=== PATIENT | male | born 1990 | race Caucasian/White ===

== ENCOUNTER 2024-12-06 12:08 | Outpatient (RCR) | payer OTHER, SELFPAY | END 2024-12-06 23:59 | disposition home or self-care (01) | LOC: RPT 12:08 | PROVIDERS: ATTENDING PHYSICIAN Nurse Practitioner Family; FAMILY PHYSICIAN Family Medicine | DX: R15.9 Full incontinence of feces (principal); N39.46 Mixed incontinence; M62.89 Other specified disorders of muscle; Z73.6 Limitation of activities due to disability; M54.50 Low back pain, unspecified; M51.369 Other intervertebral disc degeneration, lumbar region without mention of lumbar back pain or lower extremity pain | CPT/HCPCS: 97110; 97112; 97140; 97163; 97530 ==

== ENCOUNTER 2025-01-02 11:52 | Outpatient (RCR) | payer OTHER, SELFPAY | END 2025-01-02 23:59 | disposition home or self-care (01) | LOC: RPT 11:52 | PROVIDERS: ATTENDING PHYSICIAN Nurse Practitioner Family; FAMILY PHYSICIAN Family Medicine | DX: R15.9 Full incontinence of feces (principal); N39.46 Mixed incontinence; M62.89 Other specified disorders of muscle; Z73.6 Limitation of activities due to disability; M54.50 Low back pain, unspecified; M51.369 Other intervertebral disc degeneration, lumbar region without mention of lumbar back pain or lower extremity pain | CPT/HCPCS: 97140; 97530 ==

== ENCOUNTER 2025-01-31 14:20 | Outpatient (RCR) | payer OTHER, SELFPAY | END 2025-01-31 23:59 | disposition home or self-care (01) | LOC: RPT 14:20 | PROVIDERS: ATTENDING PHYSICIAN Nurse Practitioner Family; FAMILY PHYSICIAN Family Medicine | DX: R15.9 Full incontinence of feces (principal); N39.46 Mixed incontinence; M62.89 Other specified disorders of muscle; Z73.6 Limitation of activities due to disability; M54.50 Low back pain, unspecified; M51.369 Other intervertebral disc degeneration, lumbar region without mention of lumbar back pain or lower extremity pain | CPT/HCPCS: 97110; 97140; 97530 ==

== ENCOUNTER 2025-03-07 13:20 | Outpatient (RCR) | payer OTHER, SELFPAY | END 2025-03-07 23:59 | disposition home or self-care (01) | LOC: RPT 13:20 | PROVIDERS: ATTENDING PHYSICIAN Nurse Practitioner Family; FAMILY PHYSICIAN Family Medicine | DX: R15.9 Full incontinence of feces (principal); N39.46 Mixed incontinence; M62.89 Other specified disorders of muscle; Z73.6 Limitation of activities due to disability; M54.50 Low back pain, unspecified; M51.369 Other intervertebral disc degeneration, lumbar region without mention of lumbar back pain or lower extremity pain | CPT/HCPCS: 97110; 97112; 97530 ==

== ENCOUNTER 2025-03-19 13:06 | Outpatient (RCR) | payer OTHER, SELFPAY | END 2025-03-19 23:59 | disposition home or self-care (01) | LOC: RPT 13:06 | PROVIDERS: ATTENDING PHYSICIAN Nurse Practitioner Family; FAMILY PHYSICIAN Family Medicine | DX: N39.46 Mixed incontinence; M62.89 Other specified disorders of muscle; Z73.6 Limitation of activities due to disability; M54.50 Low back pain, unspecified; M51.369 Other intervertebral disc degeneration, lumbar region without mention of lumbar back pain or lower extremity pain; R15.9 Full incontinence of feces | CPT/HCPCS: 97110; 97112; 97530 ==

== ENCOUNTER 2025-04-03 10:12 | Outpatient (RCR) | payer OTHER, SELFPAY | END 2025-04-03 23:59 | disposition home or self-care (01) | LOC: RPT 10:12 | PROVIDERS: ATTENDING PHYSICIAN Otolaryngology; FAMILY PHYSICIAN Nurse Practitioner Family | DX: R42 Dizziness and giddiness (principal); M54.2 Cervicalgia; Z73.6 Limitation of activities due to disability; M51.369 Other intervertebral disc degeneration, lumbar region without mention of lumbar back pain or lower extremity pain; R26.89 Other abnormalities of gait and mobility; M62.81 Muscle weakness (generalized) | CPT/HCPCS: 97010; 97110; 97112; 97140; 97162 ==

== ENCOUNTER 2025-04-18 10:01 | Outpatient (RCR) | payer OTHER, SELFPAY | END 2025-04-18 23:59 | disposition home or self-care (01) | LOC: RPT 10:01 | PROVIDERS: ATTENDING PHYSICIAN Nurse Practitioner Family; FAMILY PHYSICIAN Family Medicine | DX: R15.9 Full incontinence of feces (principal); N39.46 Mixed incontinence; M62.89 Other specified disorders of muscle; Z73.6 Limitation of activities due to disability; M54.50 Low back pain, unspecified; M51.369 Other intervertebral disc degeneration, lumbar region without mention of lumbar back pain or lower extremity pain | CPT/HCPCS: 97112; 97530 ==

== ENCOUNTER 2025-05-07 09:34 | Outpatient (RCR) | payer OTHER, SELFPAY | END 2025-05-07 23:59 | disposition home or self-care (01) | LOC: RPT 09:34 | PROVIDERS: ATTENDING PHYSICIAN Otolaryngology; FAMILY PHYSICIAN Nurse Practitioner Family | DX: R42 Dizziness and giddiness (principal); M54.2 Cervicalgia; Z73.6 Limitation of activities due to disability; M51.369 Other intervertebral disc degeneration, lumbar region without mention of lumbar back pain or lower extremity pain; R26.89 Other abnormalities of gait and mobility; M62.81 Muscle weakness (generalized) | CPT/HCPCS: 97010; 97110; 97112; 97140 ==